=== PATIENT | female | born 1975 | race Caucasian/White ===

== ENCOUNTER 2019-03-05 06:43 | Emergency (ER) | payer OTHER ==
[~2019-03-05] VITALS: Ht 152.4 cm; Wt 65.3 kg
[2019-03-05 07:11] VITALS: Ht 152.4 cm; Wt 65.3 kg
[2019-03-05 09:56] VITALS: BP 111/61
== END 2019-03-05 09:56 | disposition home or self-care (01) ==
LOC: ED 06:43
DX: M25.552 Pain in left hip (principal); R55 Syncope and collapse; M54.5 Low back pain; Z90.49 Acquired absence of other specified parts of digestive tract
CPT/HCPCS: J1885